=== PATIENT | male | born 2000 ===

== ENCOUNTER 2018-01-11 08:03 | Emergency (ER) | payer OTHER ==
--- NOTE | 2018-01-11 08:07 | ER Report ---
History and Physical Time Seen By MD: 08:06 HPI/ROMARIO CHIEF COMPLAINT: Cut to left hand HISTORY OF PRESENT ILLNESS: Patient is a 17-year-old male with no contributory past medical history who presents to the emergency department for evaluation of cut to left index finger. Patient works at [employer] for the [employer] and was chopping onions. He inadvertently cut the tip of the radial aspect of the distal left 2nd index finger and now is having some active bleeding. Patient is unsure of his last tetanus status. REVIEW OF SYSTEMS: Musculoskeletal: Avulsion to left distal 2nd phalanx Allergies: Coded Allergies: No Known Drug Allergies (Unverified , 01/11/18) Home Meds No Active Prescriptions or Reported Meds Constitutional Vital Sign - Last 24 Hours 01/11/18 01/11/18 08:07 08:45 Temp 97.8 Pulse 80 77 Resp 16 16 B/P (MAP) 133/87 128/86 (100) Pulse Ox 95 95 O2 Delivery Room Air Room Air Physical Exam General appearance: Alert no distress. Examination of the Left hand reveals an avulsion to the radial aspect of the distal left 2nd phalanx. No laceration is apparent.. There is a slow ooze from the avulsion site. The patient is able to give a thumbs up sign, is able to make an okay sign, and is able to AB duct the fingers. Sensation is intact over the dorsal 1st web space, the volar aspect of the 2nd finger, and the volar aspect of the 5th finger. Capillary refill is brisk. [ ] Medical Decision Making ED Course/Re-evaluation ED Course 01/11/2018 8:14:10 am plan at this time I will be local wound irrigation we will update the patient's tetanus status. Plan will be dressing with Gelfoam followed by tube gauze dressing. 01/11/2018 8:35:25 am when was thoroughly cleansed piece of Gelfoam was applied and then tube gauze dressing was placed. Patient will be discharged with a few extra pieces of Gelfoam. Along with gauze and tape to redress finger. Patient was counseled not to work for the next 48 hours. To do dressing changes twice a day. Patient counseled on signs and symptoms of infection and to return if these develop. Decision to Disposition Date: January 11, 2018 Decision to Disposition Time: 08:35 Depart Departure Latest Vital Signs Vital Signs Date Time Temp Pulse Resp B/P (MAP) Pulse Ox O2 Delivery O2 Flow Rate FiO2 01/11/18 08:45 77 16 128/86 (100) 95 Room Air 01/11/18 08:07 97.8 Impression: Primary Impression: Finger avulsion Condition: Improved Disposition: HOME OR SELF-CARE New Scripts No Active Prescriptions or Reported Meds Patient Instructions: Acute Wound Care (ED) Additional Instructions: 01/11/2018 8:36:26 am No work for the next 48 hours. After 48 hours to make sure he use a glove on the injured finger for the next 3-5 days. Dressing changes at least once but preferably up to twice per day for the next 7 days. Return for signs and symptoms of infection including fever, increasing pain from the wound. Pus from the wound red streaking up the finger. Problem Qualifiers Primary Impression: Finger avulsion Encounter type: initial encounter Qualified Codes: S61.209A - Unspecified open wound of unspecified finger without damage to nail, initial encounter VU SIDHU MD January 11, 2018 08:07
[2018-01-11] MEDS ORDERED: DIPHTH/TETANUS/ACEL. PERTUSSIS IM ONLY ONE (08:15)
[2018-01-11 08:45] VITALS: BP 128/86
== END 2018-01-11 08:45 | disposition home or self-care (01) ==
LOC: ER 08:08
DX: S61.201A Unspecified open wound of left index finger without damage to nail, initial encounter (principal); W26.0XXA Contact with knife, initial encounter; Y93.G3 Activity, cooking and baking
CPT/HCPCS: 90471; 90715; 99283